=== PATIENT | female | born 1985 | race African-American/Black ===

== ENCOUNTER → 2017-07-29 | Outpatient (CLI) | payer OTHER ==
--- NOTE | 2017-07-29 11:46 | KCIC ---
INDICATION: Low back pain, lifting injury over 2 weeks ago. TECHNIQUE: Sagittal T1, sagittal T2, sagittal STIR, axial T1, and axial T2 sequences are provided. No comparison is available. FINDINGS: There is 4 mm of anterolisthesis at L5-S1. There is otherwise no malalignment. There is no marrow edema. There is no worrisome marrow lesion. There is disc desiccation at L5-S1. Conus medullaris is normal in signal intensity and in position. Subcutaneous edema is noted. The numbering system assumes 5 lumbar type vertebral bodies. Findings by individual level are as follows: L1-L2, L2-L3: There is no canal or foraminal compromise. L3-L4: There is a tiny central protrusion without canal or foraminal compromise. There is minimal facet hypertrophy. L4-L5: There is a small central protrusion measuring 12 mm at its base in 2 mm in height. There is no canal or foraminal compromise. L5-S1: In addition to the anterolisthesis there is unroofing of the disc. There is a left paracentral herniation. This herniation has 2 separate components. There is a broad-based protrusion-type component measuring up to 25 mm at its base and 6 mm in height. From this component there is an extrusion-type component migrating superiorly, sagittal T2 image 5, about 5 mm in each dimension. Herniation minimally displaces the left S1 nerve root but without significant flattening. There is no canal stenosis. There is mild bilateral foraminal narrowing. There may be a unilateral pars defect on the right at L5. IMPRESSION: 1. Degenerative disc disease in the lumbar spine is greatest at the lumbosacral junction where there is a left paracentral herniation which minimally displaces the left S1 nerve root. 2. There is otherwise no high-grade canal or foraminal compromise at any level. Electronically signed by: Amilcar Glez MD (07/29/2017 11:43 AM) [facility]-[email or web address]
--- NOTE | 2017-07-29 12:00 | KCIC ---
INDICATION: Low back pain, lifting injury. TECHNIQUE: 3 plane T1, and 3 plane fat-suppressed T2 sequences through the sacrum are provided. No comparison is available. FINDINGS: There is no sacral edema or fracture apparent. There is no sacral mass. There is no mass effect on the sacral nerve roots. A few small cysts or follicles are noted in the ovaries bilaterally. There is a small amount of free pelvic fluid. IMPRESSION: Negative for sacral fracture. Electronically signed by: Amilcar Glez MD (07/29/2017 11:56 AM) [facility]-[email or web address]
== END | disposition home or self-care (01) ==
LOC: KCIC MRI 10:00
PROVIDERS: ATTEND Emergency Medicine
DX: S39.92XD Unspecified injury of lower back, subsequent encounter (principal); M51.36 Other intervertebral disc degeneration, lumbar region; K46.9 Unspecified abdominal hernia without obstruction or gangrene; X58.XXXD Exposure to other specified factors, subsequent encounter
CPT/HCPCS: 72148; 72195

== ENCOUNTER → 2018-06-23 | Outpatient (CLI) | payer OTHER ==
[~2018-06-23] MED LIST: FERR325T14 PO; LORA10TA3 PO; MEDR10TA PO; MONT10TA9 PO; OMEP40CA5 PO
[2018-06-23 14:28] LABS: BILIRUBIN,URINE NEGATIVE (NEG); CLARITY,URINE CLEAR; COLOR,URINE YELLOW; NITRITE,URINE NEGATIVE (NEG); PROTEIN,URINE NEGATIVE (NEG-TRACE); UROBILINOGEN,URINE 0.2 mg/dL (0.2 mg/dL)
[2018-06-23 14:33] LABS: BASO # 0.1 x10^3/uL (0.0-0.2); BASO % 1 % (0-3); EOS # 0.5 x10^3/uL (0.0-0.7); EOS % 6 % (0-3); HEMATOCRIT 37.4 % (36.0-47.0); HEMOGLOBIN 12.1 g/dL (12.0-15.5); LYMPH # 2.8 x10^3/uL (1.0-4.8); LYMPH % 35 % (24-48); MEAN CORPUSCULAR HEMOGLOBIN 27 pg (25-35); MEAN CORPUSCULAR HGB CONC 33 g/dL (31-37); MEAN CORPUSCULAR VOLUME 83 fL (79-100); MONO # 0.4 x10^3/uL (0.0-1.1); MONO % 5 % (0-9); NEUT # 4.3 x10^3uL (1.8-7.7); NEUT % 53 % (31-73); PLATELET COUNT 263 x10^3/uL (140-400); RED BLOOD COUNT 4.51 x10^6/uL (3.50-5.40); RED CELL DISTRIBUTION WIDTH 19.6 % (11.5-14.5)
[2018-06-23 14:37] LABS: BACTERIA,URINE FEW /HPF (0-FEW); RBC,URINE 0 /HPF (0-2); SQUAMOUS EPITHELIAL CELL,UR MANY /LPF
[2018-06-23 14:52] LABS: ALBUMIN 3.8 g/dL (3.4-5.0); CALCIUM 9.4 mg/dL (8.5-10.1); CREATININE 0.9 mg/dL (0.6-1.0); GFR 87.3; POTASSIUM 3.9 mmol/L (3.5-5.1); TOTAL BILIRUBIN 0.2 mg/dL (0.2-1.0); TOTAL PROTEIN 7.7 g/dL (6.4-8.2)
== END | disposition home or self-care (01) ==
LOC: SURGPAT 13:39
PROVIDERS: ATTEND Obstetrics & Gynecology
DX: Z01.818 Encounter for other preprocedural examination (principal); N83.209 Unspecified ovarian cyst, unspecified side; Z86.2 Personal history of diseases of the blood and blood-forming organs and certain disorders involving the immune mechanism
CPT/HCPCS: 36415; 80053; 81001; 85025

== ENCOUNTER 2018-06-29 05:54 | Observation (INO) | payer OTHER ==
[~2018-06-29] VITALS: Ht 167.6 cm; Wt 72.6 kg
[2018-06-29 06:16] LABS: U PREG PATIENT NEGATIVE (NEG)
[2018-06-29] MEDS ORDERED: BUPIVAC MPF-EPI 0.5%-1:200000 30 ML VIAL. ONE (06:23)
[2018-06-29] MEDS ORDERED: METHYLENE BLUE 1% 10 ML VIAL. ONE (06:23)
[2018-06-29] MEDS ORDERED: ESTROGENS, CONJ VAGINAL CREAM 30GM TUBE. ONE (06:24)
[2018-06-29] MEDS: IV RINGERS,LACTATED 1000ML 1,000 ML IV SCH ×2 (06:24→10:09)
[2018-06-29] MEDS ORDERED: HYDROmorphone 2 MG/ML VIAL IV PRN (07:00)
[2018-06-29] MEDS ORDERED: LIDOCAINE 1% PF 2 ML VIAL. ID PRN (07:00)
[2018-06-29] MEDS ORDERED: ONDANSETRON PF 4 MG/2 ML VIAL. IV PRN ×2 (07:00→10:00)
[2018-06-29] MEDS ORDERED: MORPHINE SULFATE 2 MG/ML VIAL. IV PRN ×2 (07:00→10:00)
[2018-06-29] MEDS ORDERED: PROCHLORPERAZINE 10 MG/2 ML VIAL. IV PRN (07:00)
[2018-06-29] MEDS ORDERED: fentaNYL PF VIAL 100 MCG/2 ML VIAL IV PRN ×2 (07:00)
[2018-06-29] MEDS ORDERED: DEXAMETHASONE SOD PHOS 20 MG/5 ML VIAL. ONE (07:15)
[2018-06-29] MEDS ORDERED: PROPOFOL 20 ML IV ONE (07:15)
[2018-06-29] MEDS ORDERED: fentaNYL PF VIAL 100 MCG/2 ML VIAL ONE (07:15)
[2018-06-29] MEDS ORDERED: ONDANSETRON PF 4 MG/2 ML VIAL. ONE (07:15)
[2018-06-29] MEDS ORDERED: MIDAZOLAM HCL/PF 2 MG/2 ML VIAL. ONE (07:15)
[2018-06-29] MEDS ORDERED: ROCURONIUM 50 MG/5 ML VIAL. ONE (07:15)
[2018-06-29] MEDS ORDERED: FERROUS SULFATE 325 MG TABLET. PO SCH (08:00)
[2018-06-29] MEDS ORDERED: PANTOPRAZOLE 40 MG TABLET.DR. PO SCH (08:00)
[2018-06-29] MEDS ORDERED: CETIRIZINE HCL 10 MG TABLET. PO SCH (09:00)
[2018-06-29] MEDS ORDERED: KETOROLAC 30 MG/ML INJ FOR OR. INJ ONE ×2 (09:04→09:28)
[2018-06-29] MEDS ORDERED: NEOSTIGMINE METHYLSULFATE 5 MG/5 ML SYRINGE. ONE (09:04)
[2018-06-29] MEDS ORDERED: GLYCOPYRROLATE 1 MG/5 ML VIAL. ONE (09:04)
[2018-06-29] MEDS ORDERED: SEVOFLURANE > 120 MINUTES. IH ONE (09:39)
[2018-06-29] MEDS ORDERED: KETOROLAC 30 MG/ML VIAL. IV PRN (10:00)
[2018-06-29] MEDS ORDERED: diphenhydrAMINE HCL 25 MG CAPSULE PO PRN (10:00)
[2018-06-29] MEDS ORDERED: MAGNESIUM HYDROXIDE 2,400 MG/30 ML ORAL.SUSP. PO PRN (10:00)
[2018-06-29] MEDS ORDERED: NALOXONE 0.4 MG/ML VIAL. IV PRN (10:00)
[2018-06-29] MEDS ORDERED: SIMETHICONE 80 MG TAB.CHEW PO PRN (10:00)
[2018-06-29] MEDS ORDERED: CALCIUM CARBONATE 500 MG TAB.CHEW PO PRN (10:00)
[2018-06-29] MEDS ORDERED: LACTULOSE 20 GM/30 ML SOLUTION. PO PRN (10:00)
[2018-06-29] MEDS ORDERED: 0.9 % SODIUM CHLORIDE 10 ML DISP.SYRIN. IV PRN (10:00)
[2018-06-29] MEDS ORDERED: oxyCODONE/APAP 5/325 1 TAB TABLET PO PRN (10:00)
[2018-06-29] MEDS ORDERED: MAG HYDROX/ALUMINUM HYD/SIMETH 30 ML ORAL.SUSP PO PRN (10:00)
[2018-06-29] MEDS ORDERED: ZOLPIDEM 5 MG TABLET. PO PRN (10:00)
[2018-06-29] MEDS ORDERED: diphenhydrAMINE 50 MG/ML VIAL IV PRN (10:00)
--- NOTE | 2018-06-29 10:00 | PDOC ---
BRIEF OPERATIVE NOTE Date: Jun 29, 2018 Pre-Op Diagnosis menorrhagia, anemia, dysmenorrhea Post-Op Diagnosis same plus adhesions and enlarged left ovarian cyst 3-4cm Procedure Performed LAVH, bilateral salpingectomy with adhesiolysis and drainage of left ovarian cyst Surgeon Dr. Aditi Woodward [employer] Manager OR Bassam Levi Anesthesiologist Jarek Anesthesia Type: General Blood Loss 100cc IV Fluid 1200cc crystalloid Urine Output 450cc clear via mariscal Specimens Obtained cervix, uterus with bilateral tubes (left detached) Findings small RV uterus; adhesions of colon down left sidewall down to left IP ligament and left round ligament, enlarged cyst on left ovary (serous/fluid straw colored fluid only) Complications none Operative Note [id number] ADITI WOODWARD MD Jun 29, 2018 10:00
--- NOTE | 2018-06-29 10:51 | OP ---
DATE OF SURGERY: 06/29/2018 PREOPERATIVE DIAGNOSES: Menorrhagia to the point of anemia with dysmenorrhea. POSTOPERATIVE DIAGNOSES: Menorrhagia to the point of anemia with dysmenorrhea plus left colon adhesions and an enlarged left ovarian cyst 3-4 cm. PROCEDURES PERFORMED: Laparoscopic-assisted vaginal hysterectomy, bilateral salpingectomy with adhesiolysis and drainage of left ovarian cyst. SURGEON: Miranda Barraza M.D. STEREOTYPER HELPER: Two different FAs, first Adamaris Sexton and then Wendy came in and relieved her, so they were both in there. ANESTHESIOLOGIST: Dr. Tilley. FLUIDS: 1200 mL of crystalloid. URINE OUTPUT: 450 mL clear via Upton catheter. ESTIMATED BLOOD LOSS: 100 mL. SPECIMEN REMOVED: Cervix, uterus, bilateral tubes with the left one detached. FINDINGS: She had a small retroverted uterus. Adhesions of the colon, down the left side over the left IP ligament attached to the left round ligament, also an enlarged 3-4 cm simple left ovarian cyst. COMPLICATIONS: None. DESCRIPTION OF PROCEDURE: This patient was taken to the operating room where general anesthesia was placed. The patient was placed in dorsal lithotomy position in [facility]. The patient's abdomen and vagina had been prepped and draped in the normal sterile fashion and a Upton catheter was inserted under sterile technique. She received her 2 grams of Ancef prior to my arrival. Upon my arrival, we did a timeout. Once everyone agreed, a bivalve speculum was placed in the patient's vagina. A single tooth tenaculum was used to grasp the anterior lip of the cervix. A 10 mL of 0.25% Marcaine with epinephrine was used to circumferentially inject around the cervix for both hemodissection and hemostatic purposes later. The Valtchev uterine manipulator was placed through the endocervical os, locked on the single tooth tenaculum and the bivalve speculum was then removed. Top gloves were discarded and changed. Attention was then turned to the abdomen where a small supraumbilical skin incision was made with the scalpel, carried down to the underlying layer to the fascia with a curved Brittnee clamp. The 5 mm Visiport was used to directly enter the abdominal cavity and opening patient's pressure with 2-3 mmHg. Carbon dioxide gas was used to then appropriately insufflate the abdominal cavity to maintain a pressure of 15 mmHg. The patient was placed in Trendelenburg position at this point. A 2 mL of air was placed in the cuff to hold the trocar in place. Once the patient was in Trendelenburg, right and left lower quadrant ports were placed under direct visualization, first transilluminating the abdomen, finding an area clear of any vasculature, making a small incision and placing a 5 mm disposable atraumatic port and under direct visualization without difficulty and then insufflating the 2 mL of air in the cuff. Once this was done, the right tube and ovary were normal, although there were adhesions down the left side with an enlarged left ovary. So, I did use the LigaSure to go high and take down the filmy adhesions and peel down the colon off the sidewall so I could see the IP ligament and the left tube and ovary with the enlarged ovary. I was able to pull the ovary up and use the monopolar hook to drain the left ovarian cyst and it was clear straw-colored fluid and then elevating the tube, but leaving the ovary crossing under the tube, doing a salpingectomy, then crossing the left round ligament and the left uterine ovarian pedicle, again leaving the ovary per patient's request. This was done exactly the same on the right, except the tube and ovary were normal and there was no cyst; elevating the tube, going below the tube above the ovary, doing a salpingectomy, crossing the right round ligament, and the right uterine ovarian pedicle with the LigaSure cauterizing and cutting. Once this was done, going down and making the bladder flap sharply, obtaining the uterine vessels on both sides and going down through the cardinal and broad ligaments to the level of the uterosacral. The uterus was completely free posteriorly. The bladder was down, the vasculature was obtained, the uterus was blanching at this point, so all instruments were removed and attention was turned vaginally. The single tooth and Valtchev were removed. A weighted speculum was placed in the patient's vagina. Thyroid Jorge clamps were placed on the anterior and posterior lips of the cervix respectively. A scalpel was used to make a circumferential incision in the cervix. The open Ray-Fly was used to gently push up the anterior bladder peritoneum. The anterior cul-de-sac was digitally and bluntly entered. The Ray-Fly was taken out and the curved Quinn was placed in the anterior cul-de-sac. The cervix was elevated and the posterior cul-de-sac was sharply entered with the Meeks scissors. A #0 Vicryl stitch was used to secure the posterior peritoneum here to the vaginal cuff. It was tagged with a curved Brittnee clamp. The needle was cut and passed off. The short-weighted speculum was removed and replaced with the long-weighted Gordon speculum in the posterior cul-de-sac. Curved Adam clamps x 2 were placed on the patient's left uterosacral ligament where they were doubly clamped with curved Heaneys, cut with Meeks scissors and suture ligated x 2 with 0 Vicryl. Second one was taken through the vaginal cuff securing uterosacral ligament to the vaginal cuff and tagged with a straight Brittnee clamp and the needle was cut and passed off. This was all done exactly the same on the right side, double clamping the uterosacrals with curved Adam's, cutting with Meeks scissors, suture ligating x 2 with 0 Vicryl and again taking the second one through the vaginal cuff securing uterosacral ligament to the vaginal cuff and tagging it with a straight Brittnee clamp. The remaining pedicle on the left side was delineated with the right angle clamp and the vaginal LigaSure was used to cauterize and cut the remaining pedicle. The left side was completely free at this point. The right side was also delineated with the right angle clamp. Again, the vaginal LigaSure was used to cauterize and cut this. The cervix, uterus, right tube were delivered. The left tube was found upon entering the posterior cul-de-sac immediately and just stuck in there, it came detached when we were moving it around and getting the uterine vessels and doing the bladder flap. The left tube was detached, so it came out first and then the cervix, uterus and right tube came out attached in total and passed off for permanent pathology. A sponge stick was used to examine the pedicles. I could see both ovaries. It appeared to be hemostatic. So the anterior bladder peritoneum was grasped with a long Allis, 2-0 Vicryl was taken through the anterior bladder peritoneum, left uterosacral ligament. I pulled the Gordon out, replaced the short-weighted vaginal speculum so I could see the posterior peritoneum and then the right uterosacral ligament, thus closing the peritoneum in a pursestring-like fashion. Once this was done, the right and left uterosacral tags were clipped as well. The cuff was closed in an [id number] running locked fashion with a full length 2-0 Vicryl. It was tied to that posterior cuff tag. Once this was done, the cuff was examined with a sponge stick and it was found to be completely hemostatic and looked good, so all instruments were removed vaginally. All counts below were correct as well. All gloves were discarded and changed. Attention was turned back above for a second look where copious irrigation revealed hemostasis. Right and left pericolic gutters were clear. The cuff was dry. Tisseel was placed over the pedicles. The ovaries looked good, so the cuffs were deflated on all three of the ports. The right and left lower quadrant ports were removed under direct visualization, they were hemostatic. Gas was released from the umbilical port. All three port sites were closed with 4-0 nylon at the skin and injected with local. Prior to even placing the other ports, I did move the camera to the lateral port and checked the umbilical port and it was clear of any adhesions and looked good before I even did the hysterectomy, so I did not look again at the end as I had looked at the beginning and it was fine, but it all were deflated, all were removed, all were closed with 4-0 nylon at the skin and injected with local. The patient was awakened from anesthesia, extubated, and brought to recovery room in stable condition. MIRANDA BARRAZA MD DR: KRISTIAN/brionna JOB#: [id number] / [id number]
[2018-06-29 11:10] VITALS: BP 115/76
[2018-06-29 11:25] VITALS: BP 119/79
[2018-06-29] MEDS: HYDROcodone/APAP 5/325MG 1 TAB TABLET PO PRN ×2 (11:26→20:17)
[2018-06-29 11:40] VITALS: BP 117/78
[2018-06-29 12:30] VITALS: BP 118/78
[2018-06-29 14:30] VITALS: BP 115/75
[2018-06-29 16:30] VITALS: BP 116/74
[2018-06-29] MEDS ORDERED: LORazepam 0.5 MG TABLET PO ONE (17:15)
[2018-06-29] MEDS ORDERED: MONTELUKAST SODIUM PO SCH (21:00)
[2018-06-30 00:30] VITALS: BP 106/64
[2018-06-30] MEDS: HYDROcodone/APAP 5/325MG 1 TAB TABLET PO PRN (00:35)
[2018-06-30 04:51] VITALS: BP 100/59
[2018-06-30 05:29] LABS: CALCIUM 8.8 mg/dL (8.5-10.1); CREATININE 0.9 mg/dL (0.6-1.0); GFR 87.3; POTASSIUM 3.9 mmol/L (3.5-5.1)
--- NOTE | 2018-06-30 08:38 | PDOC ---
SURGICAL PROGRESS NOTE Subjective Doing well. Just gassy, but tolerating regular diet without n/v. ambulating well to restroom and voiding without catheter. Minimal vb. Wants to go home later today Vital Signs Vital Signs Date Time Temp Pulse Resp B/P (MAP) Pulse Ox O2 Delivery O2 Flow Rate FiO2 06/30/18 04:51 98.3 70 16 100/59 (73) 97 Room Air 98.3 06/29/18 10:30 10 I&O Intake and Output 06/30/18 07:00 Intake Total 2650 ml Output Total 1850 ml Balance 800 ml Intake Oral 1200 ml IV Total 1450 ml Output Urine Total 1750 ml Estimated Blood Loss 100 ml PATIENT HAS A FLYNN: No General: Alert, Oriented X3, Cooperative, No acute distress HEENT: Atraumatic Heart: Regular rate Abdomen: Soft, No tenderness, Other (all port sites c/d/i) Extremities: No clubbing, No cyanosis, No edema, No tenderness/swelling Skin: No rashes, No breakdown Neuro: Normal speech Psych/Mental Status: Mental status NL, Mood NL Labs Laboratory Tests Test 06/29/18 06:05 06/30/18 04:00 Urine Test Negative (NEG) Hematocrit 32.8 % (36.0-47.0) Sodium Level 139 mmol/L (136-145) Potassium Level 3.9 mmol/L (3.5-5.1) Chloride Level 106 mmol/L (98-107) Carbon Dioxide Level 22 mmol/L (21-32) Anion Gap 11 (6-14) Blood Urea Nitrogen 9 mg/dL (7-20) Creatinine 0.9 mg/dL (0.6-1.0) Estimated GFR (Cockcroft-Gault) 87.3 Glucose Level 109 mg/dL (70-99) Calcium Level 8.8 mg/dL (8.5-10.1) Laboratory Tests Test 06/30/18 04:00 Hematocrit 32.8 % (36.0-47.0) Sodium Level 139 mmol/L (136-145) Potassium Level 3.9 mmol/L (3.5-5.1) Chloride Level 106 mmol/L (98-107) Carbon Dioxide Level 22 mmol/L (21-32) Anion Gap 11 (6-14) Blood Urea Nitrogen 9 mg/dL (7-20) Creatinine 0.9 mg/dL (0.6-1.0) Estimated GFR (Cockcroft-Gault) 87.3 Glucose Level 109 mg/dL (70-99) Calcium Level 8.8 mg/dL (8.5-10.1) I have reviewed the following labs, vitals, nursing Cardiovascular: No pertinent hx Pulmonary: Asthma GI: No pertinent hx Heme/Onc: Anemia NOS Psych: No pertinent hx Infectious disease: No pertinent hx Renal/: No pertinent hx Assessment/Plan POD#1 s/p LAVH/bilateral salpingectomy/adhesiolysis/drainage of left ovarian cyst Routine PO care d/c to home later today NPV x 6 weeks light/limited activity x 2 weeks has pain pills at home ok for OTC ibuprofen as needed in between NO driving while on narcotic pain pills call or return sooner for any other questions or concerns not limited to but including pain unrelieved with pain pills, increased or unexplained vaginal bleeding or T>100.4 keep scheduled follow up in office MIRANDA WOODWARD MD Jun 30, 2018 08:38
--- NOTE | 2018-06-30 08:41 | PDOC3 ---
Discharge Summary Visit Information Date of Admission: Jun 29, 2018 Date of Discharge: Jun 30, 2018 Admitting Diagnosis Comment: menorrhagia, dysmenorrhea, anemia chronic prior to surgery Brief Hospital Course Allergies Allergies Coded Allergies Type Severity Reaction Last Updated Verified No Known Drug Allergies 06/29/18 No Vital Signs Vital Signs Date Time Temp Pulse Resp B/P (MAP) Pulse Ox O2 Delivery O2 Flow Rate FiO2 06/30/18 04:51 98.3 70 16 100/59 (73) 97 Room Air 98.3 06/29/18 10:30 10 Lab Results Laboratory Tests Test 06/29/18 06:05 06/30/18 04:00 Urine Test Negative (NEG) Hematocrit 32.8 % (36.0-47.0) Sodium Level 139 mmol/L (136-145) Potassium Level 3.9 mmol/L (3.5-5.1) Chloride Level 106 mmol/L (98-107) Carbon Dioxide Level 22 mmol/L (21-32) Anion Gap 11 (6-14) Blood Urea Nitrogen 9 mg/dL (7-20) Creatinine 0.9 mg/dL (0.6-1.0) Estimated GFR (Cockcroft-Gault) 87.3 Glucose Level 109 mg/dL (70-99) Calcium Level 8.8 mg/dL (8.5-10.1) Laboratory Tests Test 06/30/18 04:00 Hematocrit 32.8 % (36.0-47.0) Sodium Level 139 mmol/L (136-145) Potassium Level 3.9 mmol/L (3.5-5.1) Chloride Level 106 mmol/L (98-107) Carbon Dioxide Level 22 mmol/L (21-32) Anion Gap 11 (6-14) Blood Urea Nitrogen 9 mg/dL (7-20) Creatinine 0.9 mg/dL (0.6-1.0) Estimated GFR (Cockcroft-Gault) 87.3 Glucose Level 109 mg/dL (70-99) Calcium Level 8.8 mg/dL (8.5-10.1) Brief Hospital Course Ms. Moe is a 33 old female who presented with menorrhagia to anemia, dysmenorrhea and ovarian cyst. She underwent and LAVH/bilateral salpingectomy/ adhesiolysis and left ovarian cyst drainage yesterday without difficulty. She has had an unremarkable postoperative course. She is gassy but otherwise doing well today. Tolerating a regular diet without n/v, voiding without catheter, ambulating well and AF VSS. She will be discharged to home later today, Discharge Information Condition at Discharge: Stable Follow Up: Weeks Disposition/Orders: D/C to Home Scheduled Ferrous Sulfate (Ferrous Sulfate) 325 Mg Tablet, 1 TAB PO DAILY, #30 Ref 3 ( Reported) Entered as Reported by: FRANSICO SANDERS on 06/23/181348 Last Taken: Unknown Dose on 06/27/18 Last Action: Continued on 06/29/18726 by MIRANDA WOODWARD Loratadine (Loratadine) 10 Mg Tablet, 1 TAB PO DAILY, #30 Ref 5 (Reported) Entered as Reported by: FRANSICO SANDERS on 06/23/181348 Last Taken: Unknown Dose on 06/28/18 Last Action: Converted on 06/29/18726 by MIRANDA WOODWARD Medroxyprogesterone Acetate (Provera) 10 Mg Tablet, 1 TAB PO DAILY, #10 ( Reported) Entered as Reported by: FRANSICO SANDERS on 06/23/181348 Last Taken: Unknown Dose on 06/28/18 Last Action: HELD on 06/29/18726 by MIRANDA WOODWARD Omeprazole (Omeprazole) 40 Mg Capsule.dr, 1 CAP PO DAILY, #30 Ref 3 (Reported) Entered as Reported by: FRANSICO SANDERS on 06/23/181348 Last Taken: Unknown Dose on 06/29/18 0500 Last Action: Converted on 726 by MIRANDA WOODWARD Scheduled PRN Montelukast Sodium (Montelukast Sodium Tablet) 10 Mg Tablet, 1 TAB PO PRN 1X PRN for ANXIETY / AGITATION, #30 Ref 5 (Reported) Entered as Reported by: FRANSICO SANDERS on 06/23/181348 Last Taken: Unknown Dose on 06/28/18 Last Action: Converted on 06/29/18726 by MIRANDA WOODWARD Patient Instructions Patient Instructions POD#1 s/p LAVH/bilateral salpingectomy/adhesiolysis/drainage of left ovarian cyst Routine PO care d/c to home later today NPV x 6 weeks light/limited activity x 2 weeks has pain pills at home ok for OTC ibuprofen as needed in between NO driving while on narcotic pain pills call or return sooner for any other questions or concerns not limited to but including pain unrelieved with pain pills, increased or unexplained vaginal bleeding or T>100.4 keep scheduled follow up in office MIRANDA WOODWARD MD Jun 30, 2018 08:41
[2018-06-30 12:22] VITALS: BP 114/75
== END 2018-06-30 17:17 | disposition home or self-care (01) ==
LOC: SURG 05:54 → 3 NORTH 10:49
PROVIDERS: ADMIT Obstetrics & Gynecology; ATTEND Obstetrics & Gynecology
DX: N83.202 Unspecified ovarian cyst, left side (principal); D64.9 Anemia, unspecified; K66.0 Peritoneal adhesions (postprocedural) (postinfection); N85.4 Malposition of uterus; N92.0 Excessive and frequent menstruation with regular cycle; N94.6 Dysmenorrhea, unspecified
CPT/HCPCS: 36415; 58552; 80048; 81025; 85014; 86850; 86900; 86901; 88307; A7015; G0378; G0379; J0690; J1100; J1885; J2250; J2405; J2704; J2710; J3010; J3490; J7030; J7120; Q9968

== ENCOUNTER → 2019-07-06 | Outpatient (CLI) | payer OTHER ==
[~2019-07-06] MED LIST changes: +MONT10TA49 PO; -MONT10TA9 PO; +OMEP40CA45 PO; -OMEP40CA5 PO
--- NOTE | 2019-07-06 14:39 | KCIC ---
MRI Lumbar Spine without contrast History: Spondylosis lumbar region, chronic low back pain Technique: Multiplanar, multi sequential noncontrast MR imaging was performed of the lumbar spine. Comparison: July 29, 2017 Findings: Lumbar vertebral body stature is maintained. There is again grade 1 anterior spondylolisthesis at L5-S1 due to bilateral L5 spondylolysis. There is again mild degenerative disc disease L5-S1. There is posterior annular tear at L5-S1. Conus terminates at L1-L2. There is no significant marrow edema. L1-L2: Neural foramina and spinal canal are adequate, this level not included on the axial images. L2-L3: Neural foramina and spinal canal are adequate. L3-L4: Neural foramina and spinal canal are adequate. L4-L5: Neural foramina and spinal canal are adequate. L5-S1: There is partial uncovering of the posterior aspect of the disc due to spondylolisthesis with superimposed minimal bulge. Spinal canal is adequate. There is prominence of fat in the lateral recesses bilaterally, preserved central subarachnoid space. There is [id number] neural foramina compromise bilaterally, degree of contact of the exiting L5 nerve roots bilaterally. Impression: 1. There is again grade 1 anterior spondylolisthesis L5-S1 due to bilateral L5 spondylolysis. There is [id number] L5-S1 neural foramina compromise with degree of contact of the exiting L5 nerve roots bilaterally. There is mild L5-S1 degenerative disc disease. There is no new significant lumbar spinal stenosis. Electronically signed by: Ranjith Chase MD (07/06/2019 2:36 PM) [facility]-[email or web address]
== END | disposition home or self-care (01) ==
LOC: KCIC MRI 13:00
PROVIDERS: ATTEND Anesthesiology Pain Medicine
DX: M47.816 Spondylosis without myelopathy or radiculopathy, lumbar region (principal); M43.16 Spondylolisthesis, lumbar region; M51.37 Other intervertebral disc degeneration, lumbosacral region; G89.29 Other chronic pain
CPT/HCPCS: 72148

== ENCOUNTER → 2021-05-15 | Outpatient (CLI) | payer OTHER ==
[~2021-05-15] MED LIST changes: -OMEP40CA45 PO; +OMEP40CA7 PO
--- NOTE | 2021-05-15 13:55 | KCIC ---
EXAMINATION: MRI OF LEFT UPPER EXTREMITY WITHOUT CONTRAST INDICATIONS: Left thumb pain and swelling, jammed thumb. TECHNIQUE: Multiplanar multisequence MRI of the left hand with attention to the thumb was obtained w ithout contrast. COMPARISON: None. FINDINGS: BONES AND CARTILAGE: No acute fracture or marrow edema. LIGAMENTS: The radial collateral ligament is very attenuated and increased in signal proximally at th e metacarpal head attachment suspicious for at least high-grade partial tear. There is no retraction of the ligament. The ulnar collateral ligament is intact. TENDONS: Flexor and extensor tendons are intact. OTHER: Subcutaneous edema is seen along the radial aspect of the first MTP joint and thumb. Mild intr amuscular edema in the abductor pollicis brevis and flexor pollicis brevis musculature. IMPRESSION: High-grade tear of the radial collateral ligament of the thumb MCP joint at the proximal attachment. Electronically signed by: Shannan Kearns MD (05/15/2021 1:53 PM) [id number]
== END ==
LOC: KCIC MRI 07:55
PROVIDERS: ATTEND Nurse Practitioner
DX: S63.682A Other sprain of left thumb, initial encounter (principal); X58.XXXA Exposure to other specified factors, initial encounter; Y93.89 Activity, other specified; Y92.89 Other specified places as the place of occurrence of the external cause; Y99.8 Other external cause status; R60.9 Edema, unspecified
CPT/HCPCS: 73218

== ENCOUNTER → 2021-09-22 | Outpatient (CLI) | payer OTHER ==
--- NOTE | 2021-09-22 14:36 | RAD ---
EXAMINATION: MRI OF LEFT UPPER EXTREMITY WITHOUT CONTRAST INDICATIONS: Left thumb pain, history ligament tear TECHNIQUE: Multiplanar multisequence MRI of the left hand with attention to the thumb obtained witho ut contrast. COMPARISON: MRI left hand 05/15/2021 FINDINGS: There is extensive motion artifact on coronal STIR sequence. There is suboptimal positionin g of coronal and sagittal imaging planes. No acute fracture. Marrow signal is normal. The previously seen radial collateral ligament tear of the thumb MCP joint is not definitely seen on this exam. Soft tissue swelling along the MCP joint has resolved. Evaluation of the thumb collateral ligaments is limited due to suboptimal positioning on coronal and sagittal planes however the ligamen ts appear grossly intact on axial series. Muscles are normal. Flexor and extensor tendons are intact. Visualized portion of the median and ulnar nerves are unremarkable. IMPRESSION: The previously seen radial collateral ligament tear of the thumb MCP joint is no longer v isualized. This may reflect interval healing or repair, however evaluation of the thumb collateral li gaments is limited due to positioning and motion artifact. Soft tissue swelling has resolved. Electronically signed by: Shannan Kearns MD (09/22/2021 2:34 PM) [id number]
== END ==
LOC: MRI 09:30
PROVIDERS: ATTEND Nurse Practitioner
DX: M79.645 Pain in left finger(s) (principal); Z87.828 Personal history of other (healed) physical injury and trauma
CPT/HCPCS: 73218